=== PATIENT | female | born 2005 ===

== ENCOUNTER 2024-09-22 09:51 | Outpatient (CLI) | payer OTHER | END 2024-09-22 09:52 | disposition home or self-care (01) | LOC: PRENATAL 09:51 | PROVIDERS: ATTEND Obstetrics & Gynecology Maternal & Fetal Medicine | DX: O44.00 Complete placenta previa NOS or without hemorrhage, unspecified trimester (principal); O28.3 Abnormal ultrasonic finding on antenatal screening of mother; Z3A.20 20 weeks gestation of pregnancy ==

== ENCOUNTER → 2024-09-27 | Outpatient (CLI) | payer OTHER | END | disposition home or self-care (01) | LOC: PRENATAL 09-24 07:57 | PROVIDERS: ATTEND Obstetrics & Gynecology Maternal & Fetal Medicine | DX: O26.849 Uterine size-date discrepancy, unspecified trimester (principal); O36.8199 Decreased fetal movements, unspecified trimester, other fetus; Z3A.33 33 weeks gestation of pregnancy ==

== ENCOUNTER 2024-11-25 09:02 | Outpatient (CLI) | payer OTHER | END 2024-11-25 09:03 | disposition home or self-care (01) | LOC: PRENATAL 09:02 | PROVIDERS: ATTEND Obstetrics & Gynecology Maternal & Fetal Medicine | DX: O26.849 Uterine size-date discrepancy, unspecified trimester (principal); O36.8199 Decreased fetal movements, unspecified trimester, other fetus; O28.3 Abnormal ultrasonic finding on antenatal screening of mother; Z3A.29 29 weeks gestation of pregnancy ==

== ENCOUNTER 2024-12-31 09:40 | Outpatient (CLI) | payer OTHER | END 2024-12-31 09:41 | disposition home or self-care (01) | LOC: PRENATAL 09:40 | PROVIDERS: ATTEND Obstetrics & Gynecology Maternal & Fetal Medicine | DX: O26.849 Uterine size-date discrepancy, unspecified trimester (principal); O36.8130 Decreased fetal movements, third trimester, not applicable or unspecified; O28.3 Abnormal ultrasonic finding on antenatal screening of mother; O99.019 Anemia complicating pregnancy, unspecified trimester; Z3A.34 34 weeks gestation of pregnancy ==